=== PATIENT | male | born 1960 | race Caucasian/White ===

== ENCOUNTER 2020-06-08 04:55 | Emergency (ER) | payer MEDICAID ==
[~2020-06-08] VITALS: Ht 185.4 cm; Wt 83.5 kg
[2020-06-08 04:58] VITALS: Ht 185.4 cm; Wt 83.5 kg
[2020-06-08 06:50] LABS: microscopic required? NO
[2020-06-08 07:23] LABS: CARBON DIOXIDE 29.6 mmol/L (21-32); CHLORIDE SERUM 104 mmol/L (98-107); GFR1 > 60 mL/min; GLUCOSE SERUM 166 mg/dL (74-106); POTASSIUM SERUM 4.1 mmol/L (3.5-5.1); SODIUM SERUM 139 mmol/L (136-145)
[2020-06-08 07:26] LABS: BASOPHIL % 0.4 % (0.2-1.5); PLATELET COUNT 255 x10^3mcL (152-348); RED CELL DISTRIBUTION WIDTH 14.3 % (12.1-16.2)
[2020-06-08 07:31] LABS: ALKALINE PHOSPHATASE 90 U/L (46-116); ALT/SGPT 39 U/L (16-63); AST/SGOT 17 U/L (15-37); BILIRUBIN TOTAL 0.19 mg/dL (0.20-1.00); TOTAL PROTEIN, SERUM 6.1 g/dL (6.4-8.2)
[2020-06-08 08:23] LABS: UA SPECIFIC GRAVITY 1.015 (1.005-1.035); urine erythrocyte NEGATIVE (NEGATIVE)
[2020-06-08 09:12] VITALS: BP 123/79
[2020-06-08 10:53] LABS: MAGNESIUM 1.6 mg/dL (1.8-2.4)
[2020-06-08 16:04] LABS: rbc morphology (normal/abnorm) NORMAL (NORMAL)
== END 2020-06-08 09:12 | disposition home or self-care (01) ==
LOC: ED 04:55
PROVIDERS: Emergency Medicine
DX: E11.65 Type 2 diabetes mellitus with hyperglycemia (principal); I50.9 Heart failure, unspecified; Z98.890 Other specified postprocedural states; Z88.0 Allergy status to penicillin; Z88.5 Allergy status to narcotic agent
CPT/HCPCS: 83880

== ENCOUNTER 2020-06-16 16:08 | Emergency (ER) | payer MEDICAID, SELFPAY ==
[~2020-06-16] VITALS: Ht 170.2 cm; Wt 83.5 kg
[2020-06-16 18:26] VITALS: BP 148/82
[2020-06-16] MEDS ORDERED: DOK COLACE100 MG PO (18:38)
[2020-06-16] MEDS ORDERED: TRAZODONE50 M1 PO (18:41)
[2020-06-16] MEDS ORDERED: DILAUDID2 MG (18:42)
[2020-06-16] MEDS ORDERED: ZOF4 (18:45)
== END 2020-06-16 19:18 | disposition left against medical advice (07) ==
LOC: ED 16:08
DX: R50.9 Fever, unspecified (principal); E11.9 Type 2 diabetes mellitus without complications; I50.9 Heart failure, unspecified; Z88.0 Allergy status to penicillin; Z85.841 Personal history of malignant neoplasm of brain; Z88.5 Allergy status to narcotic agent; Z98.890 Other specified postprocedural states
CPT/HCPCS: 84439